=== PATIENT | male | born 1995 | race Caucasian/White ===

== ENCOUNTER 2017-02-23 12:00 | Emergency (ER) | payer BC ==
--- NOTE | 2017-02-23 12:52 | CPEKG ---
Heart Rate: 96 RR Interval: 625 P-R Interval: 144 QRSD Interval: 84 QT Interval: 336 QTC Interval: 425 P [place]: 71 QRS [place]: 16 T Wave [place]: -13 EKG Severity - NORMAL ECG - EKG Impression: SINUS RHYTHM Electronically Signed By: John Henning 23-Feb-2017 17:10:35
--- NOTE | 2017-02-23 13:04 | EDPHY ---
H & P Time Seen by Provider: 02/23/17 12:46 HPI/ROS: Chief complaint. Chest pain HPI. 22-year-old male presents emergency department with left-sided chest pain that began yesterday. He had an orchiectomy for testicular cancer 1 week ago. He is visiting from [place] prior to beginning chemotherapy. Apparently he had labs drawn prior to leaving [place] and had an elevated D-dimer. He called his physician yesterday that he was having some left-sided chest pain that was worse with breathing. He has no leg symptoms. He has a dry cough but no fever. No shortness of breath. No similar symptoms previously he has stage III testicular cancer. ROS Constitutional. no fever/chills, no weakness Eyes. no problems with vision ENT. no sore throat, no nasal drainage Cardiovascular. Left-sided chest pain Respiratory. no shortness of breath, no cough Abdominal. no abdominal pain, no nausea/vomiting, no diarrhea . no problems urinating MS. no calf pain/swelling, no neck/back pain, no joint pain Skin. no rash Lymph. no swollen glands Neuro. no headache, no dizziness, no difficulty walking or with speech Past Medical/Surgical History: Stage III testicular cancer status post orchiectomy Social History: Single, daily smoker, no alcohol Smoking Status: Current every day smoker Physical Exam: General Appearance: Alert pleasant well-developed male mild distress vital signs significant for heart rate 118 Eyes: Pupils equal and round no pallor or injection. ENT, Mouth: Mucous membranes are moist. Respiratory: There are no retractions, lungs are clear to auscultation. Cardiovascular: Regular rate and rhythm. Gastrointestinal: Abdomen is soft and nontender, no masses, bowel sounds normal. Neurological: Awake and alert, sensory and motor exams grossly normal. Skin: Warm and dry, no rashes. Musculoskeletal: Neck is supple nontender. Extremities symmetrical, full range of motion. Psychiatric: Patient is oriented X 3, there is no agitation. Constitutional: Initial Vital Signs Temperature (C) 36.6 C 02/23/17 12:04 Heart Rate 118 H 02/23/17 12:04 Respiratory Rate 18 02/23/17 12:04 Blood Pressure 164/94 H 02/23/17 12:04 O2 Sat (%) 96 02/23/17 12:04 O2 Delivery Mode Room Air Allergies/Adverse Reactions: No Known Allergies Allergy (Unverified 02/23/17 12:08) Home Medications: Medication Instructions Recorded Docusate Sodium [Colace 100 MG (*)] 100 mg PO BID 02/23/17 Hydrocodone/APAP 5/325 [[place] 1 tab PO 02/23/17 5/325 (*)] LORazepam [Ativan (*)] 1 mg PO 02/23/17 Ondansetron Odt [Zofran Odt 4 mg 4 mg PO Q4 02/23/17 (*)] Medical Decision Making - Diagnostics EKG Interpretation: EKG interpreted by me shows normal sinus rhythm with normal interval and axis. Slight T-wave flattening in inferior leads. No significant ST elevation or depression. No arrhythmia. The rate is 96 Imaging Results: Imaging Impressions Chest/Thorax CTA 02/23/17 13:13 Impression: 1. No pulmonary embolic disease. 2. 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 Results called and discussed with RAQUEL SIMPSON, at 02/23/2017 14:44 General information for patients regarding this examination can be found at [email or web address]. If you have questions or comments about this report, please contact me at (hospital) or [phone] (cell). CT reviewed by me and discussed with Dr. Kaminski shows no evidence for pulmonary embolus. There is evidence for thoracic metastasis. Procedures: IV normal saline, monitor ED Course/Re-evaluation: Re-evaluation 3:05 p.m.. Patient is stable. The patient and I discussed imaging and lab results. We discussed treatment plan including importance of follow-up and further evaluation as well as criteria for return. 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 Patient expresses understanding and agreement Differential Diagnosis: Patient is certainly at risk for pulmonary embolus after orchiectomy for testicular cancer in recent travel. However no evidence for pulmonary embolus. We do see lymphadenopathy suspicious for metastatic disease that is likely the cause. There is also no evidence for pneumonia. No evidence for acute coronary syndrome - Data Points Laboratory Results: Laboratory Results 02/23/17 13:00 02/23/17 13:00 02/23/17 02/23/17 02/23/17 13:00 13:00 13:00 WBC 6.25 10^3/uL 10^3/uL (3.80-9.50) RBC 5.53 10^6/uL 10^6/uL (4.40-6.38) Hgb 16.0 g/dL g/dL (13.7-17.5) Hct 47.5 % % (40.0-51.0) MCV 85.9 fL fL (81.5-99.8) MCH 28.9 pg pg (27.9-34.1) MCHC 33.7 g/dL g/dL (32.4-36.7) RDW 11.3 % L % (11.5-15.2) Plt Count 363 10^3/uL 10^3/uL (150-400) MPV 9.3 fL fL (8.7-11.7) Neut % (Auto) 63.4 % % (39.3-74.2) Lymph % (Auto) 22.7 % % (15.0-45.0) [place] % (Auto) 10.9 % % (4.5-13.0) Eos % (Auto) 1.6 % % (0.6-7.6) Baso % (Auto) 1.1 % % (0.3-1.7) Nucleat RBC Rel Count 0.0 % % (0.0-0.2) Absolute Neuts (auto) 3.96 10^3/uL 10^3/uL (1.70-6.50) Absolute Lymphs (auto) 1.42 10^3/uL 10^3/uL (1.00-3.00) Absolute Monos (auto) 0.68 10^3/uL 10^3/uL (0.30-0.80) Absolute Eos (auto) 0.10 10^3/uL 10^3/uL (0.03-0.40) Absolute Basos (auto) 0.07 10^3/uL 10^3/uL (0.02-0.10) Absolute Nucleated RBC 0.00 10^3/uL 10^3/uL (0-0.01) Immature Gran % 0.3 % % (0.0-1.1) Immature Gran # 0.02 10^3/uL 10^3/uL (0.00-0.10) PT 13.7 SEC SEC (12.0-15.0) INR 1.06 (0.83-1.16) D-Dimer 0.46 ug/mLFEU ug/mLFEU (0.00-0.50) Sodium 142 mEq/L mEq/L (134-144) Potassium 3.8 mEq/L mEq/L (3.5-5.2) Chloride 104 mEq/L mEq/L (97-110) Carbon Dioxide 21 mEq/l L mEq/l (22-31) Anion Gap 17 mEq/L H mEq/L (8-16) BUN 6 mg/dL L mg/dL (7-23) Creatinine 0.7 mg/dL mg/dL (0.7-1.3) Estimated GFR > 60 Glucose 86 mg/dL mg/dL (70-100) Calcium 10.1 mg/dL mg/dL (8.5-10.4) Troponin I < 0.012 ng/mL ng/mL (0-0.034) Medications Given: Discontinued Medications Sodium Chloride (Ns) 1,000 mls @ 0 mls/hr IV ONCE ONE; Wide Open PRN Reason: Protocol Stop: 02/23/17 13:14 Last Admin: 02/23/17 13:22 Dose: 1,000 mls Departure - Departure Disposition: Home, Routine, Self-Care Clinical Impression: Chest pain Qualifiers: Chest pain type: other chest pain Qualified Code(s): R07.89 - Other chest pain Condition: Good Instructions: Chest Pain (ED) Additional Instructions: Continue regular medications. Activity as tolerated. Return to the ER for worsening chest pain or trouble breathing while you are in [place]. Follow up with your regular physician upon return home to [place] Referrals: JULIANNA SALEH MD [Other] - As per Instructions
[2017-02-23] MEDS ORDERED: NS 1,000 ML IV ONE (13:13)
[2017-02-23 13:20] LABS: % IMMATURE GRANULYOCYTES 0.3 % (0.0-1.1); ABSOLUTE IMMATURE GRANULOCYTES 0.02 10^3/uL (0.00-0.10); ADD DIFF? NO; ADD MORPH? NO; ADD SCAN? NO; ATYPICAL LYMPHOCYTE FLAG 10 (0-99); FRAGMENT RBC FLAG 0 (0-99); HEMATOCRIT 47.5 % (40.0-51.0); LEFT SHIFT FLG 0 (0-99); LIPEMIA HEMOLYSIS FLAG 80 (0-99); MEAN CELL HEMOGLOBIN 28.9 pg (27.9-34.1); MEAN CELL HEMOGLOBIN CONCENTR. 33.7 g/dL (32.4-36.7); MEAN CELL VOLUME 85.9 fL (81.5-99.8); MEAN PLATELET VOLUME 9.3 fL (8.7-11.7); PLATELET CLUMPS FLAG 0 (0-99); PLATELET COUNT 363 10^3/uL (150-400); RED BLOOD CELL COUNT 5.53 10^6/uL (4.40-6.38); RED CELL DISTRIBUTION WIDTH 11.3 % (11.5-15.2)
[2017-02-23 13:26] LABS: INR 1.06 (0.83-1.16); PROTIME(PATIENT) 13.7 SEC (12.0-15.0)
[2017-02-23 13:31] LABS: ANION GAP 17 mEq/L (8-16); CALCIUM 10.1 mg/dL (8.5-10.4); CARBON DIOXIDE 21 mEq/l (22-31); CHLORIDE 104 mEq/L (97-110); CREATININE 0.7 mg/dL (0.7-1.3); GLOMERULAR FILTRATION RATE > 60; GLUCOSE 86 mg/dL (70-100); POTASSIUM 3.8 mEq/L (3.5-5.2); SODIUM 142 mEq/L (134-144)
[2017-02-23 13:43] LABS: TROPONIN I < 0.012 ng/mL (0-0.034)
[2017-02-23] MEDS ORDERED: IOPAMIDOL (ISOVUE 370) 100 ML BTL IV ONE (13:44)
[2017-02-23 15:22] VITALS: BP 121/71; PULSE 98; RESP 16; TEMP 98.1; O2SAT 95
== END 2017-02-23 15:23 | disposition home or self-care (01) ==
DX: R07.89 Other chest pain (principal); E86.9 Volume depletion, unspecified; F17.200 Nicotine dependence, unspecified, uncomplicated; Z85.47 Personal history of malignant neoplasm of testis
CPT/HCPCS: Q9967